=== PATIENT | female | born 1990 | race Caucasian/White ===

== ENCOUNTER → 2016-08-29 | Outpatient (CLI) | payer BC ==
[~2016-08-29] MED LIST: IRON TABLETS325 M1 OR; MOTRIN 400MG.400 MG PO; MOTRIN400 MG PO; NIFEDIPINE 10MG10 MG PO; PRENATAL1 TA1 OR; ZANTAC 150150 MG PO
[2016-08-29 16:19] LABS: LYMPH # 2.7 K/mm3 (0.7-4.5); LYMPH % 24.5 % (10-50.0)
[2016-08-29 16:26] LABS: HEMOGLOBIN 12.1 g/dL (12.2-16.2)
[2016-08-29 16:37] LABS: ABO BLOOD TYPE A
[2016-08-29 17:00] LABS: RH BLOOD TYPE NEGATIVE
[2016-08-31 08:43] LABS: HIV Screen 4th Generation wRfx Non Reactive (Non Reactive); Rapid Plasma Reagin, Quant Non Reactive (NonRea<1:1)
[2016-08-31 09:38] LABS: HBsAg Screen Negative (Negative)
== END ==
LOC: LAB 15:54
PROVIDERS: Nurse Practitioner Obstetrics & Gynecology
DX: Z34.80 Encounter for supervision of other normal pregnancy, unspecified trimester (principal)
CPT/HCPCS: G0432

== ENCOUNTER → 2017-01-16 | Outpatient (CLI) | payer BC ==
[~2017-01-16] MED LIST changes: +KEFLEX 500MG.500 MG PO
[2017-01-16 08:59] LABS: FASTING URINE GLUCOSE NEGATIVE
[2017-01-16 09:18] LABS: HEMOGLOBIN 10.1 g/dL (12.2-16.2)
[2017-01-16 09:25] LABS: ABO BLOOD TYPE A
[2017-01-16 09:36] LABS: RH BLOOD TYPE NEGATIVE
[2017-01-16 10:15] VITALS: BP 112/69
[2017-01-16 10:29] LABS: 1 HR URINE GLUCOSE NEGATIVE mg/ml
== END ==
LOC: LAB 08:17
PROVIDERS: Nurse Practitioner Obstetrics & Gynecology
DX: Z34.80 Encounter for supervision of other normal pregnancy, unspecified trimester (principal)
CPT/HCPCS: G0463; J2790

== ENCOUNTER 2017-01-19 21:52 | Emergency (ER) | payer BC ==
[~2017-01-19] VITALS: Ht 157.5 cm; Wt 75.8 kg
[~2017-01-19 21:52] MED LIST changes: -KEFLEX 500MG.500 MG PO
--- NOTE | 2017-01-19 22:12 | Emergency Room Report ---
See Addendum History of Present Illness Time Seen by 2200 Presenting Problem in Triage Pt arrived:Walked Presenting Problem:C/O SWOLLEN AND PAINFUL PERINEAL AREA FOR 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 N Clinical Suspician of Infection? N Mental Status: 1 - Regular (Normal Baseline) Sepsis Risk:Possible Sepsis Risk Have you (or family members/close friends) recently traveled outside the [place]? N If Yes, where/when: Have you had exposure to infectious disease within the past month? N TB? Other? Specify: Source patient, RN notes reviewed, family, old records Exam Limitations no limitations Comment 26 weeks with pain area on extlabia which were worse last pm and presents for follow up Cardiac Chest Pain Chest pain indicative of cardiac No Timing/Duration this evening Severity moderate ALLERGIES Coded Allergies: NO KNOWN ALLERGIES (01/19/17) Home Medications Reported Medications VIT#96/FERROUS FUM/FA ( Tablet) 1 TAB OR DAILY History Medical History General CAD? No Angina: No [place]: No Hypertension? No Hyperlipidemia? No CHF? No DVT? No PE? No COPD? No Asthma? No Anemia? No GERD? No Gastric ulcers? No GI Bleed? No Hernia? No Thyroid Problems? No Hypothyroidism? No CVA? No Seizures? No Diabetes? No Renal Insuffiency? No End Stage Renal Disease? No UTI? No Stones? No BPH? No GB Disease: No Nephritic Syndrome? No Asplenia? No Hepatitis? No Sickle Cell Disease? No Arthritis? No Migraines? No Cataracts? No Glaucoma? No MRSA? No HIV? No TB? No Anxiety? No Depression? No Cancer? 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 Respiratory denies cough, denies shortness of breath Cardiovascular denies chest pain, denies palpitations, denies syncope Gastrointestinal denies abdominal pain, denies diarrhea, denies vomiting Genitourinary see HPI, genital lesions. denies: discharge, abnormal vaginal bleeding, dysuria , frequency, hesitancy. Musculoskeletal denies joint pain, denies joint swelling Skin denies rash Psychiatric/Neurological denies headache, denies seizure Physical Exam Vital Signs Vital Signs Date Time Temp Pulse Resp B/P Pulse O2 O2 Flow FiO2 Ox Delivery Rate 01/19 2202 97.9 91 20 129/75 98 - WBC >12,000 or <4,000 or 10% bands? 2 or more SIRS Criteria Met? B/P:129/75 MAP:93 Creatinine >2.0? UA output<0.5ml/kg/hr for 2 hrs? Platelet count >100,000? Lactate >2.0mmol/1? INR >1.2 or PTT > than 60 sec? Evidence of Organ Dysfunction? Provider documented clinical suspician of infection? N Sepsis Criteria Count: 2 Sepsis Risk: Possible Sepsis Risk General Appearance no apparent distress Eye Exam - bilateral eye PERRL, bilateral eye EOMI Ear, Nose, Throat normal ENT inspection Neck supple Respiratory Status No: respiratory distress. Cardiovascular regular rate/rhythm Peripheral Pulses Pulses normal Yes Extremities normal range of motion Strength 4 Upper Ext (L), 4 Upper Ext (R), 4 Lower Ext (L), 4 Lower Ext (R) Pelvic tender indurated areas consistent with iinflamed sebaceous glands Nurse present during exam? Yes Neurologic alert, neurosurgical nurse II-XII nml as tested, no motor/sensory deficits Reflexes Reflexes normal Yes Mental status normal mood/affect Skin no rash cons.w/shingles Medical Decision Making LABS/Meds/Orders Pt receiving controlled substance in ED? No Departure Departure Time of Disposition 2228 Disposition DC Home or Self Care(routine) Clinical Impression Primary Impression: Cellulitis Qualifiers: Site of cellulitis: other site Qualified Code: L03.818 - Cellulitis of other sites Condition STABLE Referrals Jesus MCMAHON,Dickson Artis discussed with programmer analyst consultant dr Kyung Tejeda DI for -- Discomforts and Remedies Additional Instructions use meds and see dr anguiano saturday Discharge Counseling Counseled pt/family regarding diagnosis, medications/RX, follow up needs Prescriptions Current Visit Scripts CEPHALEXIN (Keflex 500MG Capsule) 500 MG PO Q8H #21 CAP ED Critical Care Critical Care No at [id number]
--- NOTE | 2017-01-19 22:12 | Emergency Room Report ---
See Addendum History of Present Illness Time Seen by 2200 Presenting Problem in Triage Pt arrived:Walked Presenting Problem:C/O SWOLLEN AND PAINFUL PERINEAL AREA FOR 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 N Clinical Suspician of Infection? N Mental Status: 1 - Regular (Normal Baseline) Sepsis Risk:Possible Sepsis Risk Have you (or family members/close friends) recently traveled outside the [place]? N If Yes, where/when: Have you had exposure to infectious disease within the past month? N TB? Other? Specify: Source patient, RN notes reviewed, family, old records Exam Limitations no limitations Comment 26 weeks with pain area on extlabia which were worse last pm and presents for follow up Cardiac Chest Pain Chest pain indicative of cardiac No Timing/Duration this evening Severity moderate ALLERGIES Coded Allergies: NO KNOWN ALLERGIES (01/19/17) Home Medications Reported Medications VIT#96/FERROUS FUM/FA ( Tablet) 1 TAB OR DAILY History Medical History General CAD? No Angina: No [place]: No Hypertension? No Hyperlipidemia? No CHF? No DVT? No PE? No COPD? No Asthma? No Anemia? No GERD? No Gastric ulcers? No GI Bleed? No Hernia? No Thyroid Problems? No Hypothyroidism? No CVA? No Seizures? No Diabetes? No Renal Insuffiency? No End Stage Renal Disease? No UTI? No Stones? No BPH? No GB Disease: No Nephritic Syndrome? No Asplenia? No Hepatitis? No Sickle Cell Disease? No Arthritis? No Migraines? No Cataracts? No Glaucoma? No MRSA? No HIV? No TB? No Anxiety? No Depression? No Cancer? 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 Respiratory denies cough, denies shortness of breath Cardiovascular denies chest pain, denies palpitations, denies syncope Gastrointestinal denies abdominal pain, denies diarrhea, denies vomiting Genitourinary see HPI, genital lesions. denies: discharge, abnormal vaginal bleeding, dysuria , frequency, hesitancy. Musculoskeletal denies joint pain, denies joint swelling Skin denies rash Psychiatric/Neurological denies headache, denies seizure Physical Exam Vital Signs Vital Signs Date Time Temp Pulse Resp B/P Pulse O2 O2 Flow FiO2 Ox Delivery Rate 01/19 2202 97.9 91 20 129/75 98 - WBC >12,000 or <4,000 or 10% bands? 2 or more SIRS Criteria Met? B/P:129/75 MAP:93 Creatinine >2.0? UA output<0.5ml/kg/hr for 2 hrs? Platelet count >100,000? Lactate >2.0mmol/1? INR >1.2 or PTT > than 60 sec? Evidence of Organ Dysfunction? Provider documented clinical suspician of infection? N Sepsis Criteria Count: 2 Sepsis Risk: Possible Sepsis Risk General Appearance no apparent distress Eye Exam - bilateral eye PERRL, bilateral eye EOMI Ear, Nose, Throat normal ENT inspection Neck supple Respiratory Status No: respiratory distress. Cardiovascular regular rate/rhythm Peripheral Pulses Pulses normal Yes Extremities normal range of motion Strength 4 Upper Ext (L), 4 Upper Ext (R), 4 Lower Ext (L), 4 Lower Ext (R) Pelvic tender indurated areas consistent with iinflamed sebaceous glands Nurse present during exam? 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 No Departure Departure Time of Disposition 2228 Disposition DC Home or Self Care(routine) Clinical Impression Primary Impression: Cellulitis Qualifiers: Site of cellulitis: other site Qualified Code: L03.818 - Cellulitis of other sites Condition STABLE Referrals Jesus MCMAHON,Dickson Artis discussed with clinical documentation clerk dr Kyung Tejeda DI for -- Discomforts and Remedies Additional Instructions use meds and see dr anguiano saturday Discharge Counseling Counseled pt/family regarding diagnosis, medications/RX, follow up needs Prescriptions Current Visit Scripts CEPHALEXIN (Keflex 500MG Capsule) 500 MG PO Q8H #21 CAP ED Critical Care Critical Care No at 6114
[2017-01-19] MEDS ORDERED: KEFLEX 500MG.500 MG PO (22:41)
[2017-01-19 23:09] VITALS: BP 129/75
--- OUTSIDE RECORDS SUMMARY | 2017-01-20 06:36 | External Medical Summary Rpt | CCD ---
Author Author [employer] Organization [employer] Address Unknown Phone Unavailable Purpose Continuity of Care Document - through 2016
--- OUTSIDE RECORDS SUMMARY | 2017-01-20 06:36 | External Medical Summary Rpt | CCD ---
Demographics Preferred Language Pashto Marital Status Unknown Mandaen Affiliation Unknown Race Unknown Ethnic Group Unknown Author Author , DARIUS MCCOY Address Unknown Phone Immunization No patient found.
--- OUTSIDE RECORDS SUMMARY | 2017-01-20 06:36 | External Medical Summary Rpt ---
Author Author ERICACONSTANTINE Ta, [employer] Organization [employer] Address Unknown Phone Unavailable Results cell screen [interpretation] in Blood Observa Value Referen Units Interpr Notes Date tion ce etation Range RHOGAM No No No RHOGAM Jan 16 cell RELEASE informa informa informa LOT# : 2016 screen tion in tion in tion in [id number] 10:10 [interp source source source 1 AM retatio data data data RELEASE n] in D Blood 7 1010 Foy Jalil P DATE: 05/12/17 Glucose [Presence] in Urine by Test strip --1 hour post 75 g glucose PO Observa Value Referen Units Interpr Notes Date ti ce etation Range Glucose No mg/dL No No Jan 16 [Mass/vol informati informati informati 2016 8:29 ume] in on in on in on in AM Serum or source source source Plasma data data data --1 hour post dose glucose Glucose NEGATIV No mg/ml No No Jan 16 E informa informa informa 2016 [Presen tion in tion in tion in 8:29 AM ce] in source source source Urine data data data by Test strip Glucose NEGATIV No mg/dL No No Jan 16 E informa informa informa 2016 [Presen tion in tion in tion in 8:29 AM ce] in source source source Urine data data data by Automat ed test strip Fasting 60 - 105 mg/dL Normal No Jan 16 glucose informati 2016 8:29 [Mass/vol on in AM ume] in source Serum or data Plasma cell screen [interpretation] in Blood Observa Value Referen Units Interpr Notes Date tion ce etation Range Blood NEGATIV NEGATIV No No LOT: Jan 16 group E E informa informa [id number] 2017 antibod tion in tion in 1EXP: 8:29 AM y source source 05/12/17 screen data data [Presen ce] in Serum or Plasma Rh NEGATIV No No No No Jan 16 [Type] E informa informa informa informa 2017 in tion in tion in tion in tion in 8:29 AM Blood source source source source data data data data ABO A No No No No Jan 16 group informa informa informa informa 2017 [Type] tion in tion in tion in tion in 8:29 AM in source source source source Blood data data data data Hemoglobin & Hematocrit panel in Blood Observa Value Referen Units Interpr Notes Date ti ce etation Range Hematocri 37.0 - % Low No Jan 16 t [Volume 47.0 informati 2016 8:29 on in AM Fraction] source of Blood data Hemoglobi 12.2 - g/dL Low No Jan 16 n 16.2 informati 2016 8:29 [Mass/vol on in AM ume] in source Blood data AFP Tetra Observa Value Referen Units Interpr Notes Date ce etation Range Results REPORT No No No No Oct 31 informa informa informa informa 2016 tion in in tion in ti in 2:11 PM source source source source data data data data Alpha-1-F No No No No Oct 31 etoprotei informati informati informati informati 2016 2:11 n on in on in on in on in PM [Mass/vol source source source source ume] in data data data data Serum or Plasma Alpha-1-F No No No No Oct 31 etoprotei informati informati informati informati 2016 2:11 n on in on in on in on in PM [Multiple source source source source of the data data data data median] adjusted in Serum or Plasma Choriogon No No No No Oct 31 adotropin informati informati informati informati 2016 2:11 on in on in on in on in PM [Units/vo source source source source lume] in data data data data Serum or Plasma Choriogon No No No No Oct 31 adotropin informati informati informati informati 2016 2:11 on in on in on in on in PM [Multiple source source source source of the data data data data median] adjusted in Serum or Plasma Estriol.u No No No No Oct 31 nconjugat informati informati informati informati 2016 2:11 ed on in on in on in on in PM [Mass/vol source source source source ume] in data data data data Serum or Plasma Estriol.u No No No No Oct 31 nconjugat informati informati informati informati 2017 2:11 ed on in on in on in on in PM [Multiple source source source source of the data data data data median] adjusted in Serum or Plasma Inhibin A No No No No Oct 31 informati informati informati informati 2017 2:11 [Mass/vol on in on in on in on in PM ume] in source source source source Serum data data data data Inhibin A No No No No Oct 31 informati informati informati informati 2017 2:11 [Multiple on in on in on in on in PM of the source source source source median] data data data data adjusted in Serum Neural No No No No Oct 31 tube informati informati informati informati 2017 2:11 defect on in on in on in on in PM risk in source source source source Fetus data data data data Trisomy No No No No Oct 31 21 risk informati informati informati informati 2017 2:11 in Fetus on in on in on in on in PM source source source source data data data data Second SCREEN No No No No Oct 31 trimest NEGATIV informa informa informa informa 2017 er quad E tion in tion in tion in tion in 2:11 PM source source source source materna data data data data l screen [interp retatio n] in Serum Narrati ve Trisomy No No No No Oct 31 21 risk informati informati informati informati 2017 2:11 based on on in on in on in on in PM maternal source source source source age in data data data data Fetus Trisomy No No No No Oct 31 18 risk informati informati informati informati 2017 2:11 in Fetus on in on in on in on in PM source source source source data data data data Trisomy No No No No Oct 31 18 risk informati informati informati informati 2017 2:11 based on on in on in on in on in PM maternal source source source source age in data data data data Fetus Second SCREEN No No No No Oct 31 trimest NEGATIV informa informa informa informa 2017 er quad E tion in tion in tion in tion in 2:11 PM source source source source materna data data data data l screen [interp retatio n] in Serum Narrati ve Gestation No No No No Oct 31 al age informati informati informati informati 2016 2:11 on in on in on in on in PM source source source source data data data data Gestati ULTRASO No No No No Oct 31 onal UND informa informa informa informa 2017 age tion in tion in tion in tion in 2:11 PM method source source source source data data data data Age at No No No No Oct 31 delivery informati informati informati informati 2016 2:11 on in on in on in on in PM source source source source data data data data Mother' CAUCASI No No No No Oct 31 s race AN informa informa informa informa 2017 tion in tion in tion in tion in 2:11 PM source source source source data data data data Body No No No No Oct 31 weight informati informati informati informati 2017 2:11 on in on in on in on in PM source source source source data data data data Insulin NOT No No No No Oct 31 PROVIDE informa informa informa informa 2017 depende D tion in tion in tion in tion in 2:11 PM nt source source source source diabete data data data data s mellitu s [Presen ce] Multipl NO No No No No Oct 31 e informa informa informa informa 2017 preganc tion in tion in tion in tion in 2:11 PM y source source source source data data data data HBsAg Screen Observa Value Referen Units Interpr Notes Date tion ce etation Range Hepatit Negativ Negativ No No Perform August 29 is B e e informa informa ed at: 2017 virus tion in tion in CB - 3:55 PM surface source source [facility] Ag data data [Presen [place]6 ce] in 370 Serum Anthon by [facility], [facility] [id number] Directo r: Marek Lorenzo ti PhD, Phone: [phone] Reagin Ab [Titer] in Serum by RPR Observa Value Referen Units Interpr Notes Date tion ce etation Range Reagin Ab NonRea<1: No No Performed August 29 [Titer] 1 informati informati at: CB 2017 3:55 in Serum on in on in - [facility] PM by RPR source source data data [id number] [place], [place] [id number] Record Label Internship: Marek Shahid PhD, Phone: [phone] Rubella virus IgG Ab [Units/volume] in Serum by Immunoassay Observa Value Referen Units Interpr Notes Date tion ce etation Range Rubella Immune index No Non-immun August 29 virus IgG >0.99 informati e 2016 3:55 Ab on in <0.90Equi PM [Units/vo source vocal lume] in data 0.90 - Serum by 0.99Immun Immunoass e ay >0.99 Blood group antibody screen [Presence] in Serum or Plasma Observa Value Referen Units Interpr Notes Date ti ce etation Range Blood NEGATIV NEGATIV No No No August 29 group E E informa informa informa 2016 antibod tion in tion in tion in 3:55 PM y source source source screen data data data [Presen ce] in Serum or Plasma Rh [Type] in Blood Observa Value Referen Units Interpr Notes Date ti ce etation Range Rh NEGATIV No No No No August 29 [Type] E informa informa informa informa 2016 in tion in tion in tion in tion in 3:55 PM Blood source source source source data data data data ABO group [Type] in Blood Observa Value Referen Units Interpr Notes Date ti ce etation Range ABO A No No No August 29 group informa informa informa 2016 [Type] tion in tion in tion in 3:55 PM in source source source Blood data data data CBC W Auto Differential panel in Blood Observa Value Referen Units Interpr Notes Date ti ce etation Range Basophils 0 - 0.2 K/MM3 Normal No August 29 informati 2016 3:55 [#/volume on in PM ] in source Blood by data Automated count Basophils 0.1 - 2.0 % Normal No August 29 informati 2016 3:55 leukocyte on in PM s in source Blood by data Automated count Eosinophi 0.0 - 0.4 K/mm3 Normal No August 29 ls informati 2016 3:55 [#/volume on in PM ] in source Blood by data Automated count Eosinophi 0.1 - % Normal No August 29 ls/100 12.0 informati 2016 3:55 leukocyte on in PM s in source Blood by data Automated count Granulocy 1.8 - 7.8 K/mm3 Normal No August 29 namita informati 2016 3:55 [#/volume on in PM ] in source Blood by data Automated count Granulocy 37.0 - % Normal No August 29 namita/100 80.0 informati 2016 3:55 leukocyte on in PM s in source Blood by data Automated count Hematocri 37.0 - % Low No August 29 t [Volume 47.0 informati 2016 3:55 on in PM Fraction] source of Blood data Hemoglobi 12.2 - g/dL Low No August 29 n 16.2 informati 2016 3:55 [Mass/vol on in PM ume] in source Blood data Lymphocyt 0.7 - 4.5 K/mm3 Normal No August 29 es informati 2016 3:55 [#/volume on in PM ] in source Unspecifi data ed specimen by Automated count Lymphocyt 10 - 50.0 % Normal No August 29 es informati 2016 3:55 [#/volume on in PM ] in source Unspecifi data ed specimen by Automated count Erythrocy 27 - 31.2 pg Normal No August 29 te mean informati 2016 3:55 corpuscul on in PM ar source hemoglobi data n [Entitic mass] Erythrocy 31.8 - g/dl Normal No August 29 te mean 35.4 informati 2016 3:55 corpuscul on in PM ar source hemoglobi data n concentra tion [Mass/vol ume] by Automated count Erythrocy 82.2 - fl Normal No August 29 te mean 97.8 informati 2016 3:55 corpuscul on in PM ar volume source [Entitic data volume] by Automated count Monocytes 0.1 - 1.0 K/mm3 Normal No August 29 informati 2016 3:55 [#/volume on in PM ] in source Blood by data Automated count Monocytes 1.7 - 9.3 % Normal No August 29 informati 2016 3:55 leukocyte on in PM s in source Blood by data Automated count Platelet 7.4 - fl Low No August 29 mean 10.4 informati 2016 3:55 volume on in PM [Entitic source volume] data in Blood by Automated count Platelets 142 - 424 K/mm3 No August 29 informati informati 2016 3:55 [#/volume on in on in PM ] in source source Blood data data Erythrocy 4.2 - 5.4 M/mm3 Low No August 29 namita informati 2016 3:55 [#/volume on in PM ] in source Amniotic data fluid Erythrocy 11.5 - % Normal No August 29 te 17.5 informati 2016 3:55 distribut on in PM ion width source [Entitic data volume] by Automated count Leukocyte 4.8 - K/MM3 High No August 29 s 10.8 informati 2016 3:55 [#/volume on in PM ] in source Blood data
--- OUTSIDE RECORDS SUMMARY | 2017-01-20 06:36 | External Medical Summary Rpt | CCD ---
Demographics Preferred Language Setswana Marital Status Unknown Religion Affiliation Unknown Race Unknown Ethnic Group Unknown Author Author , DARIUS MCCOY Address Unknown Phone Immunization No patient found.
--- OUTSIDE RECORDS SUMMARY | 2017-01-20 06:36 | External Medical Summary Rpt | CCD ---
Author Author , [employer] Organization [employer] Address Unknown Phone [email or web address] Purpose Continuity of Care Document - 08-29-2016 through 2016 Results Labs Lab Lab Date Result Refere Interp Status Commen Order Detail nces retati t Range on Maternal whole blood cell screen f (01-16-2017 10:10) Materna 01-16- RHOGAM complet l whole 017 RELEASE ed blood 10:10 RHOGAM cell RELEASE screen L f cell screen [interpretation] in Blood (01-16-2017 10:10) RHOGAM complet cell 017 RELEASE ed screen 10:10 [interp retatio n] in Blood Glucose, 1 hour after glucose administra (01-16-2017 08:29) Serum = 79 60-105 complet or 017 mg/dL ed plasma 08:29 fasting glucose measure m Urine NEGATIV complet glucose 017 E ed 08:29 NEGATIV detecti E L on by mg/dL automat ed namita Urine NEGATIV complet glucose 017 E ed 08:29 NEGATIV detecti E L on by mg/ml test strip Serum 01-16- = 100 complet or 017 mg/dL ed plasma 08:29 glucose measure ment 1 ho Maternal whole blood cell screen f (01-16-2017 08:29) Blood 01-16- A A L complet ABO 017 ed group 08:29 typing Rh NEGATIV complet blood 017 E ed group 08:29 NEGATIV typing E L Materna NEGATIV NEGATIV complet l 017 E E ed antibod 08:29 NEGATIV y E L screen Whole blood hemoglobin and hematocrit pa (01-16-2017 08:29) Blood 01-16- = 10.1 12.2-16 complet hemoglo 017 g/dL .2 ed bin 08:29 measure ment (mass/v olum Blood = 29.5 37.0-47 complet hematoc 017 % .0 ed rit 08:29 (volume fractio n) Glucose [Presence] in Urine by Test strip --1 hour post 75 g glucose PO (01-16-2017 08:29) Glucose -02-07 NEGATIV complet 017 E ed [Presen 08:29 ce] in Urine by Test strip Glucose -- NEGATIV complet 017 E ed [Presen 08:29 ce] in Urine by Automat ed test strip cell screen [interpretation] in Blood (01-16-2017 08:29) Blood NEGATIV NEGATIV complet group 017 E E ed antibod 08:29 y screen [Presen ce] in Serum or Plasma Rh NEGATIV complet [Type] 017 E ed in 08:29 Blood ABO A complet group 017 ed [Type] 08:29 in Blood Blood group antibody screen [Presence] in Serum or Plasma (08-29-2016 15:55) Blood NEGATIV NEGATIV complet group 017 E E ed antibod 15:55 y screen [Presen ce] in Serum or Plasma Rh [Type] in Blood (08-29-2016 15:55) Rh NEGATIV complet [Type] 017 E ed in 15:55 Blood ABO group [Type] in Blood (08-29-2016 15:55) ABO 08-29- A complet group 017 ed [Type] 15:55 in Blood
--- OUTSIDE RECORDS SUMMARY | 2017-01-20 06:36 | External Medical Summary Rpt ---
Author Author ERICACONSTANTINE Ta, [employer] Organization [employer] Address Unknown Phone Unavailable Results cell screen [interpretation] in Blood Observa Value Referen Units Interpr Notes Date tion ce etation Range RHOGAM No No No RHOGAM Jan 16 cell RELEASE informa informa informa LOT# : 2016 screen tion in tion in tion in [id number] 10:10 [interp source source source 1 AM [...] Jan 16 group E E informa informa [id number] 2017 antibod tion in tion in 1EXP: [...] data [Presen [place]6 ce] in [address] [place] by [facility], [facility] [id number] Directo r: Marek Lorenzo ti PhD, Phone: [phone] Reagin Ab [Titer] in Serum by RPR Observa Value Referen Units Interpr Notes Date tion ce etation Range Reagin Ab NonRea<1: No No Performed August 29 [Titer] 1 informati informati at: CB 2017 3:55 in Serum on in on in - [facility] PM by RPR source source data data [id number] [place], [place] [id number] Window Glazier Helper: Marek Shahid PhD, Phone: [phone] Rubella virus IgG Ab [Units/volume] in [...]
--- OUTSIDE RECORDS SUMMARY | 2017-01-20 06:36 | External Medical Summary Rpt | CCD ---
Author Author , [facility] Address Unknown Phone [email or web address] Purpose Continuity of Care Document - 08-29-2016 [...]
== END 2017-01-19 23:12 | disposition home or self-care (01) ==
LOC: ER 21:52
DX: L03.818 Cellulitis of other sites (principal); Z34.82 Encounter for supervision of other normal pregnancy, second trimester

== ENCOUNTER → 2017-01-21 | Outpatient (CLI) | payer BC ==
[~2017-01-21] MED LIST changes: +KEFLEX 500MG.500 MG PO
== END ==
LOC: LAB 18:13
DX: Z34.80 Encounter for supervision of other normal pregnancy, unspecified trimester (principal); N76.4 Abscess of vulva

== ENCOUNTER 2017-03-20 09:53 | Outpatient (CLI) | payer BC ==
[~2017-03-20] VITALS: Ht 157.5 cm; Wt 80.7 kg
[2017-03-20 10:15] VITALS: BP 118/76
[2017-03-20 11:08] LABS: URINE BILIRUBIN - DIPSTICK NEGATIVE (NEG); URINE BLOOD NEGATIVE (NEG)
[2017-03-20 11:14] LABS: URINE SQUAMOUS CELLS 20-50 #/hpf (0-5)
== END 2017-03-20 12:30 | disposition home or self-care (01) ==
LOC: OB 09:53 → OBOUT 09:53
PROVIDERS: Nurse Practitioner Obstetrics & Gynecology
DX: O36.8130 Decreased fetal movements, third trimester, not applicable or unspecified (principal); Z3A.35 35 weeks gestation of pregnancy; J00 Acute nasopharyngitis [common cold]

== ENCOUNTER 2017-03-22 21:35 | Outpatient (CLI) | payer BC | END 2017-03-22 22:50 | disposition home or self-care (01) | LOC: OBOUT 21:35 → OB 21:36 → OBOUT 22:50 | DX: O36.8130 Decreased fetal movements, third trimester, not applicable or unspecified (principal); Z3A.35 35 weeks gestation of pregnancy ==